=== PATIENT | male | born 1995 | race Caucasian/White ===

== ENCOUNTER 2022-06-30 16:57 | Emergency (ER) | payer OTHER, MEDICAID, SELFPAY ==
[2022-06-30] VITALS (19 sets, daily range): BP systolic 108–115; BP diastolic 57–64; PULSE 105–145; RESP 13–28; TEMP 37.3–39.5; O2SAT 95–100
--- NOTE | ~2022-06-30 | XR_ITS ---
EXAMINATION: XR chest 1V portable Exam Date/Time: 06/30/2022 20:20 SHIPPING ROOM SUPERVISOR HISTORY: SOB, FEVER, BODY ACHES, WEAKNESS Comparison: None available. RESULT: Lines, tubes, and devices: None. Lungs and pleura: Slightly low volumes with crowding. Otherwise clear. Cardiomediastinal silhouette: Normal. Other: No acute osseous or upper abdominal finding. IMPRESSION: No acute cardiopulmonary process. Reviewed, dictated and finalized at location K. PING ROOM SUPERVISOR
[2022-06-30 18:01] LABS: Influenza A QL RT-PCR Positive (Negative); Influenza B QL RT-PCR Negative (Negative); RSV RNA, RT-PCR Negative (Negative); SARS-CoV-2 RNA PCR Negative
[2022-06-30] MEDS: ACETAMINOPHEN 500 MG TABLET 1000 MG PO (20:18)
--- NOTE | 2022-06-30 20:19 | ED.FEVER ---
HPI - Fever General Chief Complaint: Fever Stated Complaint: migraine/chills Time Seen by Provider: 06/30/22 20:00 History of Present Illness HPI Narrative: Patient is a healthy 26-year-old male here for evaluation of body aches, fevers, chills, and headache for the past day. Patient states he woke up with the symptoms today. Notes nonproductive cough and feeling short of breath. Fever reached 103 at home, patient last took Tylenol at 4 PM today. Positive sick contacts, patient's daughter is sick with similar symptoms. Denies nausea, vomiting, abdominal pain, chest pain. He is not immunocompromised. Related Data Allergies Allergy/AdvReac Type Severity Reaction Status Date / Time cefprozil [From Cefzil] Allergy Unresponsiv Verified 06/30/22 20:11 e Review of Systems Review of Systems: Gen: Reports fevers Eyes: Denies eye pain or visual change ENT: Denies congestion Respiratory: Reports shortness of breath CV: Denies chest pain or palpitations GI: Denies abdominal pain nausea, emesis or diarrhea : denies burning, urgency, frequency or hematuria Musculoskeletal: Denies back pain or muscle pain Neuro: Denies numbness, tingling, weakness or focal weakness Skin: Denies rash Except as documented, all other systems reviewed and negative Exam Narrative: APPEARANCE: Well appearing, no pain in distress, well-nourished. Head: Normocephalic and atraumatic. EYES: PERRLA/EOMI, conjunctivae clear NOSE: No nasal drainage EARS: External ear normal in appearance THROAT: Oropharynx is clear. Mucous membranes are moist. NECK: Supple. No adenopathy, no masses. RESPIRATORY: Airway patent, respirations nonlabored. Clear to auscultation bilaterally, no rales, rhonchi, wheezing. CARDIOVASCULAR: Tachycardic. regular rhythm without murmurs, rubs, or gallops. ABDOMINAL: Normoactive bowel sounds. Soft, nontender, nondistended. No rebound tenderness or guarding. MUSCULOSKELETAL: Extremities are warm and well-perfused. Moves all extremities well. No edema. NEURO: Normal speech. No focal neurologic deficits. SKIN: Skin is warm and dry. No rashes. PSYCHIATRIC: Normal affect/mood. Course Vital Signs Vital signs: Vital Signs Temperature 101.7 F H 06/30/22 17:16 Pulse Rate 145 H 06/30/22 17:16 Respiratory Rate 18 06/30/22 17:16 Blood Pressure 115/62 06/30/22 17:16 Pulse Oximetry 98 06/30/22 17:16 Oxygen Delivery Room Air 06/30/22 17:16 Temperature 99.1 F 06/30/22 22:53 Pulse Rate 112 H 06/30/22 22:53 Respiratory Rate 22 H 06/30/22 22:53 Blood Pressure 112/57 L 06/30/22 22:53 Pulse Oximetry 99 06/30/22 22:53 Oxygen Delivery Room Air 06/30/22 17:16 MDM - Fever MDM Narrative Medical decision making narrative: 26-year-old male here for evaluation of upper respiratory infectious type symptoms for the past day. Patient is nontoxic-appearing but was initially tachycardic to 145 and had temperature of 101.7. Vital signs otherwise normal, no hypoxia. His flu a is positive which likely explains his symptoms today. He was given Tylenol, ibuprofen and fluids in the ED with improvement of his heart rate and fever. Patient's chest x-ray shows no acute disease. Patient is stable for discharge at this time. Antivirals discussed and patient would like to proceed. He was given reasons to return to the ED and he voiced understanding. Lab Data Labs: Lab Results 06/30/22 Range/Units 17:19 Influenza A (RT-PCR) Positive (Negative) Influenza B (RT-PCR) Negative (Negative) RSV (RT-PCR) Negative (Negative) SARS-CoV-2 RNA (RT-PCR) Negative Discharge Plan Discharge Clinical Impression: Influenza A Patient Disposition: Home, Self-Care Condition: Stable Instructions: Antibiotic Form, Influenza (ED) Additional Instructions: Your flu test is positive today which likely explains your symptoms. I am prescribing antiviral for your symptoms. Your chest x-ray does not show any
[2022-06-30] MEDS: SODIUM CHLORIDE 0.9% IV 1,000 ML 999 ML IV CONT (20:43)
[2022-06-30] MEDS: IBUPROFEN 400 MG TABLET 800 MG PO (22:45)
== END 2022-06-30 22:54 | disposition home or self-care (01) ==
PROVIDERS: Emergency Medicine; Emergency Provider Emergency Medicine
DX: J10.1 Influenza due to other identified influenza virus with other respiratory manifestations (principal); Z20.822 Contact with and (suspected) exposure to COVID-19
CPT/HCPCS: 71045; 87637; 96360; 99283; A9270; J7030

== ENCOUNTER 2024-04-29 00:57 | Emergency (ER) | payer MEDICAID, SELFPAY ==
[2024-04-29] VITALS (27 sets, daily range): BP systolic 119–135; BP diastolic 76–96; PULSE 82–113; RESP 12–27; TEMP 36.6–36.9; O2SAT 95–100
--- NOTE | ~2024-04-29 | CT_ITS ---
EXAMINATION: CT BRAIN W/O DATE: 04/29/2024 08:11 INDICATION: Headache and dizziness TECHNIQUE: Computed tomography (CT) of the head was performed without intravenous contrast. The dose- length product was 605.33 mGy-cm. Automated exposure control and iterative reconstruction technique w ere employed. COMPARISON: No prior studies for comparison. FINDINGS: Normal brain parenchymal volume for age. Normal robins-white differentiation. No acute intrac ranial hemorrhage, infarction, mass or mass effect. No ventriculomegaly or midline shift. Midline sagittal images demonstrate a normal corpus callosum, c raniovertebral junction and sella turcica. Basilar cisterns are patent. Paranasal sinuses and mastoids are pneumatized. No depressed skull fractures. IMPRESSION: 1. No acute intracranial abnormality. Reviewed, dictated and finalized at location B.
--- NOTE | 2024-04-29 01:05 | ECG_ITS ---
Test Date: 2024-04-29 01:11:02 Measurements Intervals [place] Rate: 108 P: 25 FL: 169 QRS: 4 QRSD: 96 T: 27 QT: 300 QTc: 402 Interpretive Statements SINUS TACHYCARDIA PATTERN CONSISTENT WITH PULMONARY DISEASE BORDERLINE T WAVE ABNORMALITY- INFERIOR LEADS ABNORMAL ECG No previous ECG available for comparison Electronically Signed On 04-29-2024 09:10:42 CDT by Daryl Miller D.O.
--- NOTE | 2024-04-29 07:12 | ED.DIZZY ---
HPI - Dizziness General Chief Complaint: Dizziness Stated Complaint: extremly dizzy all day Time Seen by Provider: 04/29/24 07:12 Source: patient Mode of arrival: ambulatory Limitations: no limitations History of Present Illness HPI Narrative: 28 years old white male came to the ED by private car complaining of unable to sleep because his heart rate running between 101 110. Get dizzy and headache when he get up and feel like hot flashes. Symptoms are better if he stays still or sitting or lying down. Report a lot of stress lately he is expecting another child, been coughing for the last few days, been taking atit-nsz-viwichs medication, history of migraine headache, denies smoking drinking or using drugs. Related Data Home Medications Medication Instructions Recorded Confirmed atomoxetine 80 mg capsule mg PO 04/29/24 escitalopram oxalate 10 mg tablet mg 04/29/24 topiramate 50 mg tablet mg 04/29/24 Allergies Allergy/AdvReac Type Severity Reaction Status Date / Time cefprozil [From Cefzil] Allergy Unresponsiv Verified 04/29/24 06:30 e Review of Systems Review of Systems: All systems reviewed & are unremarkable except as noted in HPI and below Exam Narrative: General appearance: Well-developed, well-nourished Skin: Normal color Head: Normocephalic, nontraumatic Eyes: Clear conjunctiva ENT: Oropharynx normal, ears normal, nose normal Neck: Supple, nontender Chest and respiratory: Airway patent, no respiratory distress, no accessory muscle use Heart: Regular rate/rhythm Abdomen: Soft, nontender, no organomegaly, quiet bowel sounds Vascular: Normal peripheral pulses, normal capillary refill. Musculoskeletal: Normal range of motion, nontender back Neurologic: Alert and oriented ?3, [employer] SAL[employer] is normal as tested, no gross motor deficit Course Vital Signs Vital signs: Vital Signs Temperature 36.6 C 04/29/24 01:04 Pulse Rate 112 H 04/29/24 01:04 Respiratory Rate 15 04/29/24 01:04 Blood Pressure 123/79 04/29/24 01:04 Pulse Oximetry 98 04/29/24 01:04 Temperature 36.8 C 04/29/24 09:15 Pulse Rate 93 04/29/24 09:15 Respiratory Rate 20 04/29/24 09:15 Blood Pressure 120/85 04/29/24 09:15 Pulse Oximetry 100 04/29/24 09:15 MDM - Dizziness MDM Narrative Medical decision making narrative: Patient presents with dizziness, tachycardia, Vital signs showed heart rate of 112 Physical examination is unremarkable Differential diagnosis include anxiety, stress, dehydration, orthostatic hypotension, [id number] cold medicine side effect, viral infection BLOOD WORKUP TODAY SHOWED NO SIGNIFICANT ABNORMALITIES, CT HEAD WITHOUT CONTRAST SHOWED NO ACUTE ABNORMALITIES, PATIENT HEART RATE DROPPED TO IN THE 80S WHILE SITTING IN THE ROOM, WHEN I WENT SEE HIM AGAIN HIS HEART RATE DID JUMP UP TO 100 +. ANXIETY LIKE SYMPTOMS IS MY CONCERN. PATIENT AGREED WITH DIAGNOSIS, THE PT WAS DISCHARGED TO HOME.THE PT,S CONDITION UPON DISCHARGE WAS FAIR,EDUCATION WAS PROVIDED TO THE PT IN REFERENCE TO THE FINAL IMPRESSION,DISCHARGE STUDY RESULTS,TREATMENT,PROGNOSIS AND NEED FOR FOLLOW UP . Differential Diagnosis Differential diagnosis: Likely other ( ABOVE) Medical Records Attestation: I reviewed the patient's medical records. Lab Data Attestation: I reviewed the patient's lab results. 04/29/24 08:41 04/29/24 08:41 Labs: Lab Results 04/29/24 04/29/24 Range/Units 07:29 08:41 WBC 12.5 H (4.5-10.0) K/mm3 RBC 5.20 (4.6-6.20) M/mm3 Hgb 15.4 (14.0-18.0) g/dL Hct 45.7 (42.0-52.0) % MCV 87.9 (80-100) fl MCH 29.6 (26-34) pg MCHC 33.7 (32-36) g/dl RDW 13.
--- NOTE | 2024-04-29 07:13 | ECG_ITS ---
Test Date: 2024-04-29 08:44:12 Measurements Intervals [place] Rate: 96 P: 23 MD: 172 QRS: -19 QRSD: 97 T: 18 QT: 317 QTc: 402 Interpretive Statements SINUS RHYTHM DELAYED PRECORDIAL R/S TRANSITION BASELINE ARTIFACT- I, II, III, AVR, AVL, AVF BORDERLINE ECG Compared to ECG 04/29/2024 01:11:02 HEART RATE HAS DECREASED Electronically Signed On 04-29-2024 09:15:56 CDT by Daryl Miller D.O.
[2024-04-29 07:59] LABS: Add Urine Microscopic? NO; Appearance Urine Clear (Clear); Bilirubin Urine Negative (Negative); Blood Urine Negative (Negative); Color Urine Yellow (Yellow); Glucose Urine UA Negative (Negative); Ketones Urine Negative (Negative); Leukocyte Esterase Ur Negative LEU/UL (Negative); Nitrate Urine Negative (Negative); Protein Urine Negative (Negative); Specific Grav Ur 1.006 (1.001-1.035); Urobilinogen Urine 0.2 mg/dL (<2.0); pH Urine 5.5 (5.0-9.0)
[2024-04-29 08:14] LABS: Amphetamine Screen Urine Negative (Negative); Barbiturate Screen Urine Negative (Negative); Benzodiazepines Screen Urine Negative (Negative); Cannabinoid Screen Urine Negative (Negative); Cocaine Screen Urine Negative (Negative); Methadone Screen Urine Negative (Negative); Opiate Screen Urine Negative (Negative); Phencyclidine Screen Urine Negative (Negative)
[2024-04-29 08:49] LABS: Basophils Absolute Auto 0.1 K/mm3 (0.0-0.1); Basophils Percent Auto 0.4 % (0.2-1.2); Eosinophils Absolute Auto 0.1 K/mm3 (0-0.3); Eosinophils Percent Auto 0.7 % (0-4.4); Hematocrit 45.7 % (42.0-52.0); Hemoglobin 15.4 g/dL (14.0-18.0); Immature Granulocyte Absolute 0.06 K/mm3 (0.00-0.031); Immature Granulocyte Percent A 0.5 % (0-0.5); Lymphocytes Absolute Auto 3.19 K/mm3 (0.9-3.2); Lymphocytes Percent Auto 25.6 % (18.3-44.2); Mean Corpuscular HGB Conc 33.7 g/dl (32-36); Mean Corpuscular Hemoglobin 29.6 pg (26-34); Mean Corpuscular Volume 87.9 fl (80-100); Mean Platelet Volume 9.7 fl (7.4-10.4); Monocytes Absolute Auto 0.8 K/mm3 (0.1-0.6); Monocytes Percent Auto 6.5 % (2.6-8.5); Neutrophils Absolute Auto 8.3 K/mm3 (1.3-6.7); Neutrophils Percent Auto 66.3 % (45.5-73.1); Platelet Count Result 282 k/mm3 (150-375); White Blood Count 12.5 K/mm3 (4.5-10.0)
[2024-04-29 09:00] LABS: Alanine Aminotransferase 29 U/L (6-50); Alkaline Phosphatase 75 U/L (38-126); Anion Gap 13 mmol/L (4-12); Aspartate Amino Transferase 40 U/L (17-59); Bilirubin,Total 0.9 mg/dL (0.2-1.3); Blood Urea Nitrogen 13 mg/dL (9-20); Calcium 9.2 mg/dL (8.4-10.2); Carbon Dioxide 22 mmol/L (22-30); Chloride 105 mmol/L (98-107); Estimated Glomerular Filt Rate > 60; Glucose 91 mg/dL (65-110); Potassium 3.6 mmol/L (3.4-5.0); Sodium 140 mmol/L (137-145)
[2024-04-29 09:27] LABS: Influenza A QL RT-PCR Negative (Negative); Influenza B QL RT-PCR Negative (Negative); RSV RNA, RT-PCR Negative (Negative); SARS-CoV-2 RNA PCR Negative (Negative)
== END 2024-04-29 10:14 | disposition home or self-care (01) ==
PROVIDERS: Emergency Provider Emergency Medicine
DX: F41.9 Anxiety disorder, unspecified (principal); Z20.822 Contact with and (suspected) exposure to COVID-19; R00.0 Tachycardia, unspecified; R94.31 Abnormal electrocardiogram [ECG] [EKG]
CPT/HCPCS: 36415; 70450; 80053; 80307; 81003; 85025; 87637; 93005; 99284